=== PATIENT | male | born 1950 | race Two or more races ===

== ENCOUNTER → 2019-08-26 | Outpatient (CLI) | payer BC, MEDICARE ==
--- NOTE | 2019-08-26 22:15 | CONS ---
CONSULTATION DATE OF SERVICE: 08/26/2019 This patient is a 69-year-old gentleman who [facility] for loud snoring and possible obstructive sleep apnea-hypopnea syndrome. HISTORY OF PRESENT ILLNESS/SLEEP-WAKE EVALUATION: Patient's usual sleep schedule if from around 11:30 p.m. until around 8:30 a.m. No problems with falling asleep. No TV in bedroom. He usually sleeps on the side position by himself because of the loudness of his snoring. He wakes up from sleep 3 times with nocturia. Positive history of sweating during sleep. In the morning, the patient wakes up tired, falling asleep during the day. [place] Sleepiness Scale is 6. He may take two naps during the day. He drinks one caffeinated beverage during the day. No history of hypnagogic hallucinations, sleep paralysis or cataplexy. PAST MEDICAL HISTORY: Positive for diabetes mellitus, acid reflux, ETOH abuse. PAST SURGICAL HISTORY: Rotator cuff surgery on the right side. MEDICATIONS: Metformin, folic acid, omeprazole, vitamin B1, baby aspirin, vitamin C supplement, magnesium supplement, vitamin D3, melatonin, NovoLog. SOCIAL HISTORY: Positive for smoking for about 50 years, around half pack a day; quit several months ago. Overusage of alcohol; quit also several months ago. FAMILY HISTORY: Hypertension, heart problems, stroke. REVIEW OF SYSTEMS: Multiple awakenings from sleep with nocturia. Sleepiness during the day. Patient takes two naps a day. PHYSICAL EXAMINATION: gentleman without distress. VITAL SIGNS: BP 138/81, HR 77, RR 16, height 6 feet 1 inch, weight 197.6 pounds, body mass index 25.9, temperature 96.5, oxygen saturation at room air 98%. HEENT: PERRLA, EOMI. Evaluation of oropharynx showed tongue protrudes midline. Mallampati II. Slight restriction of nasal breathing on one side. NECK: Supple. No JVD. Thyroid is not palpable. Neck measures 16-3/4 inches in circumference. LUNGS: Clear to percussion and to auscultation. Good air exchange. No wheezing or rhonchi. HEART: S1, S2 regular. No murmurs, gallops or rubs. ABDOMEN: Soft. No tenderness. EXTREMITIES: Tendency for minimal swelling of ankles up to 1+. LENS ASSORTER: Awake, alert, and oriented X3. Cranial nerves 2 to 7 intact. There is no fasciculation or atrophy. noted. No focal deficits observed. IMPRESSION: 1. Loud snoring, multiple awakenings from sleep, sleepiness during the day. The patient takes two naps. Restriction of nasal breathing; possible obstructive sleep apnea-hypopnea syndrome. 2. Diabetes mellitus. 3. History of peripheral neuropathy. 4. History of alcohol abuse. 5. History of smoking for around 50 years, less than a pack a day. 6. Status post rotator cuff surgery on the right side. 7. Status post hernia repair many years ago. PLAN: 1. Polysomnography for evaluation of patient's breathing during sleep. 2. CPAP/BiPAP titration if sleep study confirms obstructive sleep apnea-hypopnea syndrome. 3. Preferable position during sleep on the side. 4. No driving if patient feels any sleepiness. 5. I will see patient for follow up visit to explain results of testing and following plan. Thank you very much for referring this patient for consultation. Sincerely, Miguel Alfredo MD, PhD, FAASM Diplomat of [employer] Traffic [employer] Administrator of [facility] [place] MMODL / IJN: [id number] /
== END | disposition home or self-care (01) ==
LOC: SLEEP 15:04
PROVIDERS: ATTEND Internal Medicine
DX: R06.83 Snoring (principal); E11.9 Type 2 diabetes mellitus without complications; F17.210 Nicotine dependence, cigarettes, uncomplicated; Z98.890 Other specified postprocedural states; Z86.69 Personal history of other diseases of the nervous system and sense organs; Z86.59 Personal history of other mental and behavioral disorders; Z79.82 Long term (current) use of aspirin; Z79.84 Long term (current) use of oral hypoglycemic drugs; Z79.899 Other long term (current) drug therapy
CPT/HCPCS: 99211